=== PATIENT | male | born 1965 | race Asian ===

== ENCOUNTER 2019-10-16 14:13 | Inpatient (IN) | payer OTHER ==
[~2019-10-16] VITALS: Ht 170.2 cm; Wt 98.2 kg
--- NOTE | 2019-10-16 14:31 | NUR ---
PT RESTING IN BED, AAOX4 WITH C/O SOB WITH EXERTION X 8 DAYS. PT DENIES ANY RECENT RESP ILLNESS, FEVERS, URINARY PROBLEMS OR N/V/D/C AT THIS TIME. NO SIGNS OF SOB AT THIS TIME. PT PLACED ON MONITOR. EKG DONE BY HEATH PARKER AT BEDSIDE. DR GARNER AT BEDSIDE FOR EXAM.
[2019-10-16 15:01] LABS: BASOPHIL % 1.2 % (0-2); PLATELET COUNT 189 x10^3mcL (130-400); RED CELL DISTRIBUTION WIDTH 14.6 % (11.5-14.5)
--- NOTE | 2019-10-16 15:07 | NUR ---
PT PLACED ON FULL CM, CRASH CART AT BEDSIDE, PT PLACED ON DEFIB PADS.
[2019-10-16 15:16] LABS: CALCIUM 8.8 mg/dL (8.5-10.1); CARBON DIOXIDE 22.6 mmol/L (21-32); CREATININE SERUM 1.6 mg/dL (0.7-1.3); POTASSIUM SERUM 4.3 mmol/L (3.5-5.1)
[2019-10-16 15:20] LABS: ALBUMIN 3.6 g/dL (3.4-5.0); BILIRUBIN TOTAL 0.31 mg/dL (0.20-1.00)
--- NOTE | 2019-10-16 15:23 | NUR ---
PT PLACED ON ZOLL MONITORFOR CLOSER CARDIAC MONITORING. DENIES C/O PAIN OR SHOB AT THIS TIME. WILL CONTINUE TO MONITOR FOR CHANGES
--- NOTE | 2019-10-16 16:52 | NUR ---
PATIENT RESTING QUIETLY AT THIS TIME. DENIES COMPLAINTS OF CP OR SHOB. CM WITH SB, NO ECTOPY NOTED. WILL CONTINUE TO MONITOR FOR CHANGES. PATIENT AWAITING BED ASSIGNMENT.
--- NOTE | 2019-10-16 18:30 | NUR ---
ATTEMPTED TO GIVE REPORT. ADVISED PATIENT IS ICU STATUS. CHARGE NURSE AWARE. R
[2019-10-16 18:31] LABS: T3 TOTAL 1.26 ng/mL
[2019-10-16 18:34] LABS: CHOLESTEROL/HDL RATIO 4.2; MAGNESIUM 1.9 mg/dL (1.8-2.4)
[2019-10-16 18:42] LABS: FREE T4 1.13 ng/dL (0.76-1.46); FREE THYROXINE INDEX 3.2 ug/dL (1.4-4.5)
--- NOTE | 2019-10-16 19:11 | NUR ---
REPORT TO REYNALDO AGUDELO
--- NOTE | 2019-10-16 19:17 | NUR ---
REPORT TO REYNALDO AGUDELO
--- NOTE | 2019-10-16 20:15 | NUR ---
RECEIVED PT FROM ER VIA RNEY ACCOMPANIED BY RN AND EMT. PT TRANSFERRED TO ICU BED 1 WITH NO COMPLICATIONS. PT IS A/OX4. SPEECH IS CLEAR. ABLE TO MAKE NEEDS KNOWN/FOLLOW COMMADS. PT DENIES ANY DIZZINESS AT THIS TIME. BREATHING IS E/U ON 2 LPM VIA NC. LUNGS SOUND CLEAR TO BUL AND DIMIN TO BLL. SYMMETRICAL CHEST EXPANSION NOTED. DENIES ANY SOB. S1/S2 HEART SOUNDS AUSCULTATED. CHEST WALL EQUAL AND SYMMETRICAL. PT SINUS CHASE, HR 42, NIBP 162/59 MAP 133. PT DENIES ANY CP/DIZZINESS. PT ASYMPTOMATIC AT THIS TIME. PALPABLE PULSES X4 EXTREMITIES. SKIN IS WARM AND DRY. NO EDEMA NOTED. CAP REFILL < 3 SECS. LAC IV INTACT/SECURED, NS INFUSING @ 100 ML/HRABD IS SOFT/DISTENDED. BOWEL SOUNDS ACTIVE X4 QUADRANTS. PT STS HE HAD A FORMED BROWN BM EARLIER TODAY. PT VOIDS FREELY VIA URINAL. NO SCROTAL EDEMA/PENILE DISCHARGE NOTED. MINIMAL AMOUNT OF BLOOD/SWELLING NOTED TO R TOE, TOENAIL APPEARS LIFTED. SKIN IS INTACT. PT ABLE TO REPOSITION SELF INDEPENDENTLY. PT ORIENTED TO ROOM AND USE OF CALL LIGHT. BED IN LOW POSITION. CALL LIGHT IN REACH. WILL CONT TO MONITOR
[2019-10-16 20:33] VITALS: BP 162/59
--- NOTE | 2019-10-16 20:40 | NUR ---
DR. TORRES MADE AWARE PT'S HR IS IN THE LOW 30'S. PT ASYMPTOMATIC. PER DR. TORRES, SINCE PT IS ASYMPTOMATIC, WILL HOLD OFF ON ADIMINISTERING ATROPINE. WILL COME DOWN TO SEE PT IN A FEW MINUTES.
--- NOTE | 2019-10-16 21:50 | NUR ---
DR. TORRES MADE AWARE PT'S HR DROPS TO 28. PER DR. TORRES, WILL ORDER ATROPINE
--- NOTE | 2019-10-16 22:03 | NUR ---
HR 34. PT ADMINISTERED ATROPINE 0.5 MG IVP PER EMAR. PT'S HR INCREASED TO MID 40'S AND IS SUSTAINING AT THIS TIME.
[2019-10-16] MEDS ORDERED: LOSARTAN POTASS25 M1 PO (22:38)
[2019-10-16] MEDS ORDERED: LOSARTAN POTASS25 M1 (22:39)
[2019-10-16] MEDS ORDERED: METFORMIN HYDR500 M1 (22:40)
[2019-10-16 23:07] VITALS: BP 104/47
--- NOTE | 2019-10-17 00:09 | NUR ---
DR. TORRES MADE AWARE PT'S HR DROPS TO 28 BPM. PT REMAINS ASYMPTOMATIC. PER DR. TORRES, WILL ORDER SECOND DOSE OF ATROPINE.
--- NOTE | 2019-10-17 01:37 | NUR ---
PT'S HR SUSTAINING IN THE LOW 30'S AND DROPS TO [address] TORRES MADE AWARE THAT WHEN PT RECEIVES ATROPINE, HIS HR INCREASES TO THE MID 40'S AND DROPS BACK DOWN TO THE 30'S. PER DR. TORRES, SINCE PT IS ASYMPTOMATIC, RECEIVED ORDER TO CALL HIM BACK ONCE THE PT'S HR DROPS TO 25 BPM TO RECEIVE AN ORDER FOR ATROPINE. DR. TORRES INFORMED OF PT'S CRITICAL STATE AND MYSELF NOT FEELING COMFORTABLE WAITING UNTIL HR DROPS THAT LOW TO RECIEVE AN ORDER. PER DR. TORRES, WILL ORDER ATROPINE 1 MG AT THIS TIME AND WILL ASSESS AFTERWARDS.
--- NOTE | 2019-10-17 02:09 | NUR ---
PT'S HR 33. ADMINISTERED ATROPINE [address] TORRES ORDER. PT'S HR INCREASED TO A HIGH OF 47 BPM AND IS SUSTAINING IN THE HIGH 30'S/LOW 40'S. PT REMAINS ASYMPTOMATIC. WILL CONT TO MARCIAL
[2019-10-17 04:06] VITALS: BP 128/64
--- NOTE | 2019-10-17 04:22 | NUR ---
X-RAY TECH AT BEDSIDE
[2019-10-17 06:06] LABS: BASOPHIL % 0.3 % (0-2); PLATELET COUNT 191 x10^3mcL (130-400)
[2019-10-17 06:12] LABS: CALCIUM 8.6 mg/dL (8.5-10.1); CARBON DIOXIDE 23.2 mmol/L (21-32); CREATININE SERUM 1.4 mg/dL (0.7-1.3); MAGNESIUM 2.1 mg/dL (1.8-2.4); PHOSPHOROUS 3.6 mg/dL (2.5-4.9); POTASSIUM SERUM 4.5 mmol/L (3.5-5.1)
[2019-10-17 06:16] LABS: microscopic required? NO
[2019-10-17 06:28] LABS: RED CELL DISTRIBUTION WIDTH 14.8 % (11.5-14.5)
--- NOTE | 2019-10-17 06:45 | NUR ---
DR. TO AT BEDSIDE. UPDATED ON PT'S STATUS. MADE AWARE OF PT'S CONTINUED BRADYCARDIA WITH THE HR IN THE 30'S. PT REMAINS ASYMPTOMATIC. AWAITING ORDERS
--- NOTE | 2019-10-17 06:50 | NUR ---
PT NOTED IN 3RD DEGREE HEART BLOCK ON RESEARCH NURSE PRACTITIONER. DR. TO AT BEDSIDE. ORDER FOR STAT EKG AND POSSIBLE EXTERNAL PACEMAKER
[2019-10-17 07:00] VITALS: BP 142/79
[2019-10-17 07:00] LABS: UA SPECIFIC GRAVITY >=1.030 (1.005-1.035); urine erythrocyte NEGATIVE (NEGATIVE)
--- NOTE | 2019-10-17 07:00 | NUR ---
SHIFT ASSESSMENT*: NEURO: AAOX4. FOLLOWS COMMANDS. SPEECH IS CLEAR AND APPROPRIATE FOR AGE. NO FACIAL DROOP OR UNILATERAL WEAKNESS NOTED. PERRL. EENT: EENT FREE OF DISCHARGE. NO JVD. TRACHEA MIDLINE. RESPIRATORY: ON ROOM AIR. BREATHING E/U. SYMMETRICAL CHEST WALL EXPANSION. CLEAR LUNG SOUNDS TO BUL, DIM TO BLL. DENIES SOB AT THIS TIME. CARDIAC: 2ND DEGREE AV BLOCK. HR = 40. S1/S2 HEART SOUNDS AUDIBLE. DENIES CP AT THIS TIME. CIRCULATORY: MOD PALPABLE PULSES X4. CAP REFILL <3 SEC. NO EDEMA. SKIN IS WARM/DRY TO TOUCH, COLOR CONSISTENT WITH ETHNICITY. PIV TO LAC INTACT, PORT PATENT, DRESSING CDI. NS INFUSING @ 100 ML/HR. MUSCULOSKELETAL: AMBULATORY. ABLE TO TURN AND REPOSITION SELF INDEPENDENTLY. JOINTS INTACT. NO CONTRACTURES. NUTRITION: CCHO DIET. FAIR APPETITE. DENIES N/V. GI: ABD IS ROUND, SYMMETRICAL, SOFT, NONTENDER. ACTIVE BOWEL SOUNDS X4. NO BM AT THIS TIME. : VOIDS FREELY VIA URINAL. URINE ROXANNE IN COLOR. SKIN: R TOENAIL APPEARS BLEEDING AND SWOLLEN. PSYCH: APPEARS ANXIOUS BUT COOPERATIVE WITH CARE.
--- NOTE | 2019-10-17 07:00 | NUR ---
RECEIVED REPORT FROM DOMITILA JACOBS. ALL QUESTIONS ANSWERED AND ADDRESSED. ASSUMING CARE AT THIS TIME.
--- NOTE | 2019-10-17 07:02 | NUR ---
EMILIANO RT AT BEDSIDE FOR EKG. DR. TO SPEAKING TO THE PT IN [facility] TO POC
--- NOTE | 2019-10-17 07:10 | NUR ---
PER DR. TO, PT REMAINS ASYMPTOMATIC AND HR IS SUSTAINING IN THE 40'S. EKG DOES NOT READ 3RD DEGREE HEART BLOCK. PER DR. TO, CONTINUE TO MONITOR
--- NOTE | 2019-10-17 07:15 | NUR ---
REPORT GIVEN TO SHALONDA JACOBS. ALL QUESTIONS/CONCERNS ADDRESSED. ENDORSING ALL CARE
[2019-10-17 07:37] LABS: AMPHETAMINE QUAL UR NONE DETECTED (See below)
--- NOTE | 2019-10-17 09:50 | NUR ---
ECHO BEING DONE AT BEDSIDE AT THIS TIME
--- NOTE | 2019-10-17 10:40 | NUR ---
RESIDENTS, ATTENDING, BULL LADLE TENDER AND PRIMARY RN AT BEDSIDE FOR ROUNDS. NURSING UPDATES. AWAITING FOR DR. BRAUN TO ASSESS PT. NO OTHER NEW ORDERS AT THIS TIME.
[2019-10-17 11:24] VITALS: BP 156/67
--- NOTE | 2019-10-17 14:30 | NUR ---
DR. BRAUN AT BEDSIDE ASSESSING PT. NURSING UPDATES. DR. BRAUN WANTS PT TO UNDERGO A TREADMILL STRESS TEST TOMORROW.
[2019-10-17 15:36] VITALS: BP 146/61
--- NOTE | 2019-10-17 17:36 | NUR ---
PT IS SITTING UP AND RESTING IN BED AT THIS TIME. AAOX4. FOLLOWS COMMANDS. SPEECH IS CLEAR AND APPROPRIATE FOR AGE. NO FACIAL DROOP OR UNILATERAL WEAKNESS NOTED. PERRL. EENT FREE OF DISCHARGE. TRAHCEA MIDLINE. NO JVD. ON ROOM AIR. BREATHING E/U. SYMM CHEST WALL EXPANSION. CLEAR LUNG SOUNDS TO BUL, DIM TO BLL. DENIES SOB, CP, DIZZINESS, SYNCOPE. SINUS CHASE WITH PAC'S NOTED ON BIOLOGICAL SCIENTIST. MOD PALPABLE PULSES X4. CAP REFILL <3 SEC. NO EDEMA. SKIN WARM/DRY TO TOUCH, COLOR CONSISTENT WITH ETHNICITY. PIV TO LAC INTACT, PORT PATENT, DRESSING CDI. NS INFUSING @ 100ML/HR. ABD IS SOFT, SYMM, ROUNDED, AND NONTENDER. ACTIVE BOWEL SOUNDS X4. NO BM. VOIDS FREELY VIA URINAL. CCHO DIET. FAIR APPETITE. DENIES N/V. TURNS/REPOSITIONS SELF INDEPENDENTLY. JOINTS INTACT. NO CONTRACTURES. BED IN LOWEST POSITION, X3 SIDE RAILS UP, CALL LIGHT WITHIN REACH.
--- NOTE | 2019-10-17 19:30 | NUR ---
RECEIVED PT FROM PREVIOUS SHIFT NURSE. PT AOX4, DENIES ELENA/DIZZINESS AT THIS TIME. DENIES CP/PRESSURE. DENIES SOB/DIFFICULTY BREATHING, ON RA. IV TO LAC, INTACT AND PATENT. BED IN LOWEST POSITION. CALL LIGHT WITHIN REACH. WILL CONTINUE TO MONITOR.
[2019-10-17 20:30] VITALS: BP 130/52
[2019-10-17 23:00] VITALS: BP 127/64
--- NOTE | 2019-10-18 00:51 | NUR ---
PT RESTING IN BED. RR EVEN AND UNLABORED. IN NO ACUTE DISTRESS. CALL LIGHT WITHIN REACH. BED IN LOWEST POSITION. WILL CONTINUE TO MONITOR.
[2019-10-18 03:15] VITALS: BP 106/57
[2019-10-18 06:20] LABS: BASOPHIL % 0.1 % (0-2); PLATELET COUNT 172 x10^3mcL (130-400); RED CELL DISTRIBUTION WIDTH 14.5 % (11.5-14.5)
--- NOTE | 2019-10-18 06:39 | NUR ---
NO ACUTE CHANGES THROUGHOUT SHIFT. PT RESTING COMFORTABLY. NO DISTRESS NOTED. WILL ENDORSE CARE TO ONCOMING SHIFT NURSE.
[2019-10-18 06:58] LABS: CALCIUM 8.2 mg/dL (8.5-10.1); CARBON DIOXIDE 22.7 mmol/L (21-32); CHLORIDE SERUM 111 mmol/L (98-107); CREATININE SERUM 1.3 mg/dL (0.7-1.3); GFR1 > 60 mL/min; GLUCOSE SERUM 124 mg/dL (74-106); MAGNESIUM 1.9 mg/dL (1.8-2.4); PHOSPHOROUS 2.9 mg/dL (2.5-4.9); POTASSIUM SERUM 4.2 mmol/L (3.5-5.1); SODIUM SERUM 142 mmol/L (136-145)
[2019-10-18 08:15] VITALS: BP 147/66
--- NOTE | 2019-10-18 08:43 | NUR ---
AT 0710 -RECEIVED PATIENT FROM NIGHT NURSE. AWAKE, ALERT AND ORIENTED TO PERSON, PLACE, TIME AND SITUATION. MONITOR SHOWING SINUS BRADYCARDIA; RATE 37. NO C/O CHEST PAIN OR DIZZINESS. RESPIRATIONS REGULAR; ON ROOM AIR. O2 SAT 100%. PATIENT IS SCHEDULED FOR TREADMILL STRESS TEST AT 1100 TODAY. BP 137/67. IV INFUSING NS AT 100ML/HR AT 0810 - VOIDED 350 ML ROXANNE URINE. PATIENT IS NPO FOR PRODECURE.
[2019-10-18 09:47] VITALS: Ht 170.2 cm; Wt 98.2 kg
[2019-10-18 10:15] VITALS: BP 147/64
--- NOTE | 2019-10-18 10:27 | NUR ---
SEEN BY DR DILLON DURING MORNING ROUNDS. DR VILLEGAS AND CHARGE NURSE SHASTA ALSO PRESENT. DR DILLON SPOKE WITH PATIENT ABOUT HIS CONDITION AND CARDIAC HISTORY AND PLAN FOR STRESS TEST TODAY. PATIENT TO FOLLOW-UP WITH HIS DIE CUTTING MACHINE OPERATOR, DR CARRERA UPON DISCHARGE.
--- NOTE | 2019-10-18 10:40 | NUR ---
PATIENT TAKEN TO RADIOLOGY FOR TREADMILL STRESS TEST. ACCOMPANIED BY NURSE FROM [facility].
--- NOTE | 2019-10-18 11:39 | NUR ---
PATIENT BACK TO ICU 1 FROM THE TREADMILL TEST. NO INCIDENCE OCCURRED. WILL CONTINUE TO MONITOR.
[2019-10-18 12:10] VITALS: BP 140/58
--- NOTE | 2019-10-18 12:32 | NUR ---
AT 1140 - PATIENT BACK IN ROOM FOLLOWING STRESS TEST. VSS. IV INFUSION OF NS RESUMED AT 100 ML/HR. AT 1200 - CHARGE NURSE SPOKE WITH DR BRAUN BECAUSE PATIENT WAS ASKING FOR PLAN AND WHEN HE WOULD BE RELEASED FROM HOSPITAL. RECEIVED ORDER TO KEEP PATIENT NPO FOR POSSIBLE PACEMAKER INSERTION. AT 1220 - SEEN BY DR BRAUN WHO SPOKE WITH PATIENT AND MOTHER AT LENGTH. EXPLAINED TO PATIENT THE RECOMMENDATION AND NEED FOR A PACEMAKER AND THE RISKS INVOLVED WITH NOT HAVING ONE PLACED. PATIENT REFUSED TO HAVE A PACEMAKER INSERTED AT THIS TIME. WANTS TO LEAVE THE HOSPITAL AMA. AT 1240 - DR VILLEGAS NOTIFIED OF PATIENT INTENT. PATIENT SIGNED AMA FORM. NOW EATING LUNCH.
--- NOTE | 2019-10-18 13:20 | NUR ---
AT 1300 - PATIENT HAS EATEN LUNCH. TAKEN OFF MONITORING. IV CATHETER REMOVED INTACT. PATIENT INSTRUCTED TO FOLLOW-UP WITH HIS PCP. AT 1310 - PATIENT LEFT AMA WITH HIS MOTHER. TAKEN TO CAR IN WHEELCHAIR BY NURSE.
== END 2019-10-18 13:08 | disposition left against medical advice (07) | DRG 201 ==
LOC: ED 14:13 → DU 17:16 → IC 17:16
PROVIDERS: Emergency Medicine; ADMIT Internal Medicine
DX: R00.1 Bradycardia, unspecified (principal); N17.0 Acute kidney failure with tubular necrosis; E11.9 Type 2 diabetes mellitus without complications; E78.5 Hyperlipidemia, unspecified; I34.0 Nonrheumatic mitral (valve) insufficiency; R74.0 Nonspecific elevation of levels of transaminase and lactic acid dehydrogenase [LDH]; I44.30 Unspecified atrioventricular block; Z53.21 Procedure and treatment not carried out due to patient leaving prior to being seen by health care provider; I10 Essential (primary) hypertension; Z68.34 Body mass index [BMI] 34.0-34.9, adult; Z87.891 Personal history of nicotine dependence; Z79.84 Long term (current) use of oral hypoglycemic drugs
CPT/HCPCS: 82962; 83880; 84439; G0378; J0461; J7030; Q0092